=== PATIENT | female | born 2000 | race Caucasian/White ===

== ENCOUNTER 2020-07-04 01:35 | Emergency (ER) | payer OTHER ==
[2020-07-04] MEDS ORDERED: TETRACAINE 0.5% HCL 0.6ML DROPPER.BOTTLE OD ONE (02:29)
[2020-07-04] MEDS ORDERED: TETRACAINE 0.5% OPHTH SOLN 2 ML BOTTLE ONE (02:37)
[2020-07-04 02:43] VITALS: BP 133/77; PULSE 92; TEMP 98.3; BMI 32.3
== END 2020-07-04 04:00 | disposition home or self-care (01) ==
LOC: JER 01:35
DX: T15.02XA Foreign body in cornea, left eye, initial encounter (principal)
CPT/HCPCS: 99283-25